=== PATIENT | female | born 2000 ===

== ENCOUNTER 2022-12-16 10:47 | Outpatient (CLI) | payer OTHER | END 2022-12-16 11:46 | disposition home or self-care (01) | LOC: PRENATAL 10:47 | PROVIDERS: ATTEND Obstetrics & Gynecology Maternal & Fetal Medicine | DX: O35.9XX0 Maternal care for (suspected) fetal abnormality and damage, unspecified, not applicable or unspecified (principal); O35.3XX0 Maternal care for (suspected) damage to fetus from viral disease in mother, not applicable or unspecified; O34.219 Maternal care for unspecified type scar from previous cesarean delivery; Z3A.24 24 weeks gestation of pregnancy ==

== ENCOUNTER 2023-02-18 10:52 | Outpatient (CLI) | payer OTHER | END 2023-02-18 16:33 | disposition home or self-care (01) | LOC: PRENATAL 10:52 | PROVIDERS: ATTEND Obstetrics & Gynecology Maternal & Fetal Medicine | DX: O26.849 Uterine size-date discrepancy, unspecified trimester (principal); O36.8199 Decreased fetal movements, unspecified trimester, other fetus; O34.219 Maternal care for unspecified type scar from previous cesarean delivery; Z3A.33 33 weeks gestation of pregnancy ==

== ENCOUNTER 2023-03-09 08:53 | Inpatient (IN) | payer OTHER ==
[~2023-03-09] VITALS: Ht 157.5 cm; Wt 2.7 kg
[2023-03-09] MEDS ORDERED: PRENATABS RX T1 EACH PO (09:09)
== END 2023-03-12 12:24 | disposition home or self-care (01) | DRG 783 ==
LOC: LDR 08:53 → O/R 16:34 → OB/GYN 18:00
PROVIDERS: ADMIT Obstetrics & Gynecology; ATTEND Obstetrics & Gynecology
PROC: 0UB70ZZ Excision of Bilateral Fallopian Tubes, Open Approach (ICD-10-PCS; 2023-03-09)
PROC: 4A1HXCZ Monitoring of Products of Conception, Cardiac Rate, External Approach (ICD-10-PCS; 2023-03-09)
PROC: 10D00Z1 Extraction of Products of Conception, Low, Open Approach (ICD-10-PCS; principal; 2023-03-09 16:00)
DX: O34.211 Maternal care for low transverse scar from previous cesarean delivery (principal); O71.1 Rupture of uterus during labor; Z3A.38 38 weeks gestation of pregnancy; Z30.2 Encounter for sterilization; Z20.822 Contact with and (suspected) exposure to COVID-19